=== PATIENT | female | born 1995 | race African-American/Black ===

== ENCOUNTER 2017-12-15 22:20 | Emergency (ER) | payer OTHER, SELFPAY ==
[2017-12-15 22:20] VITALS: BP 130/72; PULSE 103; RESP 16; TEMP 36.8; O2SAT 100; BMI 35.2
--- NOTE | 2017-12-15 22:35 | ED.VISSUMM ---
- ER Visit Summary Date of Service: 12/15/17 Chief Complaint: Fall and head injury History of Present Illness: The patient is a 22 F no significant past medical or surgical history. Says she was walking today and there was snow on the curb she slipped and fell. Says she has she had her right side of her head on her right shoulder. Denies hitting the ground. She denies any loss of conscious. She has had mild nausea and a mild diffuse headache since the fall. Denies vomiting. Denies neck pain. Denies any numbness or tingling to her arms or legs. No trouble with her vision. No trouble walking. She denies any use of any blood thinners or any significant head injury in the past. Physical Examination: Well-appearing young female. Vital signs are stable afebrile. HEENT exam pupils round reactive light. No signs of trauma to her face or scalp. There is no bruising or hematomas. No areas of tenderness. C-spine is nontender. She has full range of motion to her neck. She is able to touch chin to chest. She is able to rotate both the left and right. HEENT exam there is no hemotympanum. Both eardrums are normal. Lungs clear to auscultation bilaterally. Heart regular rate and rhythm no murmur. Chest wall nontender. Abdomen soft nontender. Normal bowel sounds. Pelvic girdle intact. Both the upper and lower extremities have normal range of motion. No deformities. 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 Dorsi plantar flexion intact. The cervical, thoracic and lumbar spine and back are all nontender. Neurologic exam is normal. Her NIH is 0. Her GCS is 15. She is awake and alert. Has normal speech. Extraocular motions are intact. Fingertip to nose and [id number] are both within normal limits. She ambulates without any difficulty. Test Results: None Emergency Department Course and Treatment: She will be treated for closed head injury. She does not meet any criteria for a CAT scan of her head at this time. Treatment Plan: Close head injury treatment. Tylenol and Motrin for pain. Return if vomiting. Worsening headache. Or develop any neurological symptoms. Disposition: Discharge Impression: Acute fall with closed head injury / Concussion This note was generated with [employer] software. It may contain incorrect words, spelling, and punctuation that were not noted in review of the chart prior to signing ED Disposition - Plan for ED Patient: Chief Complaint: Head Injury Referrals: [facility],Out of [Primary Care Provider] -
--- NOTE | 2017-12-15 22:38 | ED.DCSUM_ITS ---
- ER Visit Summary Date of Service: 12/15/17 Chief Complaint: Fall and head injury History of Present Illness: The patient is a 22 F no significant past medical or surgical history. Says she was walking today and there was snow on the curb she slipped and fell. Says she has she had her right side of her head on her right shoulder. Denies hitting the ground. She denies any loss of conscious. She has had mild nausea and a mild diffuse headache since the fall. Denies vomiting. Denies neck pain. Denies any numbness or tingling to her arms or legs. No trouble with her vision. No trouble walking. She denies any use of any blood thinners or any significant head injury in the past. Physical Examination: Well-appearing young female. Vital signs are stable afebrile. HEENT exam pupils round reactive light. No signs of trauma to her face or scalp. There is no bruising or hematomas. No areas of tenderness. C- spine is nontender. She has full range of motion to her neck. She is able to touch chin to chest. She is able to rotate both the left and right. HEENT exam there is no hemotympanum. Both eardrums are normal. Lungs clear to auscultation bilaterally. Heart regular rate and rhythm no murmur. Chest wall nontender. Abdomen soft nontender. Normal bowel sounds. Pelvic girdle intact. Both the upper and lower extremities have normal range of motion. No deformities. 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 Dorsi plantar flexion intact. The cervical, thoracic and lumbar spine and back are all nontender. Neurologic exam is normal. Her NIH is 0. Her GCS is 15. She is awake and alert. Has normal speech. Extraocular motions are intact. Fingertip to nose and [id number] are both within normal limits. She ambulates without any difficulty. Test Results: None Emergency Department Course and Treatment: She will be treated for closed head injury. She does not meet any criteria for a CAT scan of her head at this time. Treatment Plan: Close head injury treatment. Tylenol and Motrin for pain. Return if vomiting. Worsening headache. Or develop any neurological symptoms. Disposition: Discharge Impression: Acute fall with closed head injury / Concussion This note was generated with [employer] software. It may contain incorrect words, spelling, and punctuation that were not noted in review of the chart prior to signing ED Disposition - Plan for ED Patient: Chief Complaint: Head Injury Referrals: [facility],Out of [Primary Care Provider] -
--- NOTE | 2017-12-15 22:38 | ED.DEP ---
ED Disposition - Plan for ED Patient: Disposition: Home or Assisted Living Chief Complaint: Head Injury Instructions: ED Concussion Referrals: [facility],Out of [Primary Care Provider] - As Needed Additional Instructions: Tylenol and Motrin for pain. Reason follow head injury instructions. Return if severe and worsening headache or intractable vomiting or trouble moving her arms or legs.
== END 2017-12-15 22:49 | disposition home or self-care (01) ==
LOC: ED 22:45
PROVIDERS: Emergency Provider Emergency Medicine
DX: S06.0X0A Concussion without loss of consciousness, initial encounter (principal); W00.2XXA Other fall from one level to another due to ice and snow, initial encounter; Y93.01 Activity, walking, marching and hiking; Y92.9 Unspecified place or not applicable
CPT/HCPCS: 99282

== ENCOUNTER 2018-12-04 20:26 | Emergency (ER) | payer OTHER, SELFPAY ==
[2018-12-04 20:26] VITALS: BP 136/91; PULSE 90; RESP 14; TEMP 36.6; O2SAT 98; BMI 46.0
[2018-12-04] MEDS: Acetaminophen 500 MG Tablet 1000 MG PO (20:50)
--- NOTE | 2018-12-04 20:52 | RAD_ITS ---
STUDY: X-RAY - LUMBAR SPINE REASON FOR EXAM: Female, 23 years old. Trauma TECHNIQUE: 3 view(s) of the lumbar spine were obtained. COMPARISON: None FINDINGS: Normal lumbar lordosis. There is no substantial scoliosis. There is a normal alignment of the vertebrae. Normal vertebral bodies and endplates. Normal disc space heights. There is mid coccygeal subluxation with posterior displacement of the bony segment. Cannot exclude associated fracture although definite fracture fragment is not visualized. The soft tissue structures are unremarkable. RAD/Lumbar Spine 2 or 3 Views IMPRESSION: No evidence for acute fracture or subluxation of the lumbar spine. Incidental finding of mid coccygeal subluxation and a possible fracture although no definite fracture fragment is observed Electronically Signed: Gustavo Queen MD at 21:33 EST , Service support ,
[2018-12-04 20:56] LABS: Bacteria 0 SEEN /hpf (None Seen); Mucous, Urine 0 SEEN /hpf (<or=2+); White Blood Cells 0 SEEN /hpf (0-5)
[2018-12-04 21:00] LABS: Internal QC Validated? YES +Cl - CLEAR BKGD; Pregnancy, Urine Negative Negative
[2018-12-04 21:28] LABS: Color, Urine Yellow (Yellow); Glucose, Dipstick Normal (Normal); Ketone-Dipstick Negative (Negative); Leukocyte Esterase-Dipstick Negative /ul (Negative); Nitrite-Dipstick Negative (Negative); Occult Blood-Urine 50 /ul (Negative); Protein-Dipstick Negative (Negative); Specific Gravity, Urine 1.015 (1.002-1.030); Urine Bilirubin Dipstick Negative (Negative); Urine Clarity Clear (Clear); Urine Urobilinogen Normal (Normal); Urine pH 6.5 (5.0 - 8.0)
[2018-12-04 21:30] LABS: Squamous Epithelial Cells - UA 0-5 SEEN /hpf (5-10)
[2018-12-04 21:31] LABS: Red Blood Cells-Urine 5-10 SEEN /hpf (0-5)
--- NOTE | 2018-12-04 21:47 | ED.VISSUMM ---
- ER Visit Summary Date of Service: 12/04/18 Chief Complaint: Vaginal bleeding, low back pain History of Present Illness: The patient is a 23 F has vaginal bleeding and low back pain. She has had this for a couple of weeks. She missed her menstrual cycle in October and has intermittent bleeding for the past couple of weeks. She denies any abdominal pain with this. She is not on any control. She denies any dysuria or hematuria. A couple of days ago she fell on ice. She landed right on her buttocks. She has been having pain in her low back since. She has taken nothing for it at home. Physical Examination: Vital signs reviewed. Heart is regular rate and rhythm. Lungs are clear to auscultation. Abdomen is soft and nontender. Back exam reveals tenderness in the lumbar down into the sacral area. Neurologic exam is normal. Test Results: Urinalysis reveals a small amount of blood. HCG negative. LS spine x-ray reveals a subluxation of the coccyx. Radiologist is questioning a fracture although a fracture line is not seen Emergency Department Course and Treatment: As far as the patient's vaginal bleeding, I do not feel she requires any further workup. She will monitor this and will follow up with her SENIOR CYTOTECHNOLOGIST. I did give her Tylenol here. The x-ray is questioning a fracture through the coccyx even though fracture line is not seen. This is where she is tender. I will treated as if she has a fracture. She will rest, use a doughnut when she sits. I will give her naproxen for pain. She will ice the area and will follow up with her primary care physician if her pain persist. Treatment Plan: [] Disposition: Discharge Impression: Coccygeal fracture with subluxation Dysfunctional uterine bleeding This note was generated with [employer]ing[employer] dictation software. It may contain incorrect words, spelling, and punctuation that were not noted in review of the chart prior to signing ED Disposition - Plan for ED Patient: Chief Complaint: Vag Bleeding Referrals: [facility] Doctor,Out of [Primary Care Provider] -
--- NOTE | 2018-12-04 21:50 | DCINST.ED_ITS ---
ED Disposition - Plan for ED Patient: Disposition: Home or Assisted Living Chief Complaint: Vag Bleeding Instructions: ED Fx Coccyx Prescriptions: Naproxen [Naprosyn] 500 mg PO BID PRN #20 tab Referrals: [facility] Doctor,Out of [Primary Care Provider] -
== END 2018-12-04 21:56 | disposition home or self-care (01) ==
PROVIDERS: Emergency Provider Emergency Medicine
DX: N93.8 Other specified abnormal uterine and vaginal bleeding (principal); S32.2XXA Fracture of coccyx, initial encounter for closed fracture; W00.9XXA Unspecified fall due to ice and snow, initial encounter; Y93.9 Activity, unspecified; Y92.9 Unspecified place or not applicable
CPT/HCPCS: 72100; 81001; 81025; 99283

== ENCOUNTER 2019-01-03 13:29 | Emergency (ER) | payer OTHER, SELFPAY ==
[2019-01-03 13:30] VITALS: BP 149/100; PULSE 91; RESP 16; TEMP 36.9; O2SAT 99; BMI 45.8
--- NOTE | 2019-01-03 13:58 | US_ITS ---
STUDY: ULTRASOUND OF THE FEMALE PELVIS - COMPLETE REASON FOR EXAM: Female, 23 years old. Vaginal bleeding. LMP: November 20, 2018. TECHNIQUE: Transvaginal TECHNICAL QUALITY: Adequate. COMPARISON: None. FINDINGS: The uterus is retroverted and is tilted to the right side of the pelvis. The uterus measures 5.9 cm x 3.7 sinus by 4.5 cm. Normal uterine cervix. The endometrium measures 8.0 mm in thickness, and is hyperechoic. There is no demonstrated endometrial mass. There is no demonstrated myometrial mass. I.U.D. - The patient does not have an I.U.D. The right ovary is visualized. The right ovary measures 3.1 cm x 2.1 cm x 1.5 cm. There is no right ovarian cyst or ovarian mass. There is no visualized right adnexal mass or complex lesion. There is normal arterial and normal venous vascularity. The left ovary is visualized. The left ovary measures 3.5 cm x 1.8 cm x 2.5 cm. There is a 2.6 cm x 0.8 cm left ovarian cyst. There is no visualized left adnexal mass or complex lesion. There is normal arterial and normal venous vascularity. There is minimal fluid in the cul-de-sac. Polycystic ovary disease: No. US/Transvaginal Non- IMPRESSION: Left ovarian cyst. Small amount of free fluid in the cul-de-sac. Electronically Signed: Saman Murray, at 16:03 EST , Service support ,
[2019-01-03 14:45] LABS: Basophil# 0.01 X10^3/uL; Basophil% 0.1 % (0-1); Eosinophil# 0.06 X10^3/uL; Eosinophils% 0.6 % (0-5); Hematocrit 39.9 % (37-47); Lymphocyte % 18.2 % (19-41); Mean Corp Hgb Conc 32.6 g/gl (32-36); Mean Corpuscular Hgb 28.6 pg (27.0-32.0); Mean Corpuscular Volume 87.9 fL (81-99); Mean Platelet Vol. 10.5 fl (6.2-12.0); Monocyte# 0.45 X10^3/uL; Monocyte% 4.3 % (0-10); Neutrophil % 76.6 % (47-70); Platelet Count 366 K/mm3 (150-450); RBC Distribution Width CV 13.1 % (11.6-14.6); Red Blood Count 4.54 M/mm3 (4.2-5.4); White Blood Count 10.4 K/mm3 (4.4-11.0)
[2019-01-03 14:46] LABS: POSITIVE COUNT NO; POSITIVE DIFFERENTIAL NO; POSITIVE MORPHOLOGY NO
[2019-01-03 14:54] LABS: Anion Gap 8 (5-15); BUN 12 mg/dL (7-18); BUN/Creat Ratio 16.9 RATIO (10-20); Calcium,Total 8.8 mg/dL (8.5-10.1); Chloride 106 mmol/L (98-107); Creatinine, Serum 0.71 mg/dL (0.55-1.02); EST Glomerular Filtration Rate 110 mL/min (>60); Est Glom Filt Rate - Afr Amer 133 mL/min (>60); Estimated Creatinine Clearance 90.03 ml/min; Glucose 85 mg/dL (74-106); Potassium 3.7 mmol/L (3.5-5.1); Sodium Level 139 mmol/L (136-145)
[2019-01-03 15:23] LABS: Pregnancy, Serum, hCG Quali. NEGATIVE Negative (0-9 Nonpreg)
--- NOTE | 2019-01-03 15:35 | ED.DCSUM_ITS ---
- ER Visit Summary Date of Service: 01/03/19 Chief Complaint: Vaginal bleeding History of Present Illness: The patient is a 23 F with vaginal bleeding for about 6 weeks. The bleeding has gotten more severe recently and she reports bleeding heavier than her normal periods. She is also having suprapubic scraper tender mping as well as nausea and vomiting. She was seen obviously in the ED but has not followed up with [facility]. She has had blood work but has not had any imaging. She is not taking any medication for this. She denies associated symptoms like symptoms. She denies any diarrhea or constipation. Denies any fevers. Denies any instrumentation or . Physical Examination: Afebrile and vital signs unremarkable. Patient is alert and oriented. No acute distress. Heart regular rate and rhythm. Lungs clear. Abdomen soft and nontender. Skin appears normal. Test Results: CBC and BMP unremarkable. test negative. Ultrasound is pending. Emergency Department Course and Treatment: Patient declined any medication while awaiting results. Will repeat her lab work and check an ultrasound. Oncoming doctor will check the ultrasound results. She will be referred to Dr. Archer for outpatient follow-up. Treatment Plan: As above Disposition: Pending ultrasound Impression: 1. Vaginal bleeding This note was generated with igobubble dictation software. It may contain incorrect words, spelling, and punctuation that were not noted in review of the chart prior to signing ED Disposition - Plan for ED Patient: Referrals: Rani Burris,Out of [Primary Care Provider] -
--- NOTE | 2019-01-03 15:35 | ED.DEP ---
ED Disposition - Plan for ED Patient: Instructions: ED Bleeding Menstrual Heavy Referrals: Cherise Archer MD [STAFF PHYSICIAN] -
[2019-01-03 15:43] VITALS: BP 120/85; PULSE 90; RESP 17; O2SAT 99
[2019-01-03 16:40] VITALS: RESP 15
== END 2019-01-03 16:40 | disposition home or self-care (01) ==
LOC: ED 14:29
PROVIDERS: Emergency Provider Emergency Medicine
DX: N93.9 Abnormal uterine and vaginal bleeding, unspecified (principal); N83.202 Unspecified ovarian cyst, left side
CPT/HCPCS: 76830; 80048; 84703; 85025; 99283; A4216

== ENCOUNTER → 2019-01-09 16:09 | Outpatient (CLI) | payer OTHER, SELFPAY ==
[2019-01-09 13:49] VITALS: BMI 46.8
[2019-01-09 20:15] LABS: Chlamydia Trachomatis by PCR Negative (Negative); Neisserai gonorrhoeae by PCR Negative (Negative); Probe Check PASS; Sample Adequacy Control PASS; Specimen Processing Control PASS
[2019-01-12 12:15] LABS: HPV Reflexed? NOT INDICATED
== END ==
PROVIDERS: Referring Provider Nurse Practitioner Women's Health; Visit Provider Nurse Practitioner Women's Health
DX: Z12.4 Encounter for screening for malignant neoplasm of cervix (principal); Z11.3 Encounter for screening for infections with a predominantly sexual mode of transmission
CPT/HCPCS: 87491; 87591; 87624; 88175; G0145